=== PATIENT | female | born 2000 | race African-American/Black ===

== ENCOUNTER 2022-08-11 04:35 | Inpatient (IN) | payer BC ==
[2022-08-11] VITALS (19 sets, daily range): BP systolic 102–146; BP diastolic 55–96; PULSE 66–109; TEMP 97.4–98.1
[~2022-08-11] VITALS: Ht 172.7 cm; Wt 112.7 kg
--- NOTE | 2022-08-11 04:35 | NUR ---
PT TO UNIT VIA WHEELCHAIR WITH COMPLIANTS OF CTX THAT BEGAN AT APPROXIMATELY 0230 THIS MORNING. PT ORIENTED TO ROOM, CHANGED INTO GOWN. DENIES LOF BUT STATES SOME BLEEDING. NO ACTIVE BLEEDING VISUALIZED AT THE PERINEUM, SVE OF 7/100/-2 WITH BULGING BAG. PT UNCOMFORTABLE AND BREATHING HEAVILY WITH CTX. WILL NOTIFY PHYSICIAN.
--- NOTE | 2022-08-11 05:17 | NUR ---
Pt assisted to edge of the bed for epidural placement. Rafaela FOSTER at bedside to explain procedure. Difficulty tracing FHR due to maternal position. RN at bedside adjusting monitor. Pulse ox applied. [id number]: Difficulty tracing contractions due to maternal pain and movement. 0524: single shot administered by Rafaela FOSTER. See anesthesia records. 0540: Pt feeling pressure and need to push. SVE C/0. Jerry placed with very small amount of urine return. 0550: Pt begins pushing with this RN and spouse at bedside. 0554: Spontaneous rupture of membrane during contraction and pushing. Clear fluid noted. Pericare provided.
[2022-08-11 05:21] LABS: BASO % 0.2 % (0.0-2.0); EOS # 0.1 K/mm3 (0.0-0.7); EOS % 0.5 % (0.0-4.0); GRAN # 6.8 K/mm3 (1.4-6.5); GRAN % 71.2 % (42.2-75.2); HEMATOCRIT 37.5 % (37.0-47.0); HEMOGLOBIN 12.4 g/dl (12.5-16.0); LYMPH # 2.1 K/mm3 (1.2-3.4); LYMPH % 21.9 % (20.0-51.0); MEAN CELL VOLUME 85 fl (80.0-100.0); MEAN CORPUSCULAR HEMOGLOBIN 28 pg (27-31); MEAN CORPUSCULAR HGB CONC 33 g/dl (33.0-37.0); MEAN PLATELET VOLUME 12.1 fl (7.4-10.4); MONO # 0.6 K/mm3 (0.1-0.6); MONO % 5.8 % (1.7-9.3); PLATELET COUNT 205 K/mm3 (130-400); RED BLOOD COUNT 4.41 M/mm3 (4.10-5.30); REDCELL DISTRIBUTION WIDTH-CV 13.6 % (11.5-14.5)
[2022-08-11] MEDS ORDERED: CLEOCIN HCL300 MG PO (05:44)
[2022-08-11] MEDS ORDERED: TERAZOL0.4% VG (05:45)
[2022-08-11] MEDS ORDERED: PRENATAL TABLET PO (05:46)
--- NOTE | 2022-08-11 06:15 | NUR ---
0615 - BEDSIDE REPORT WITH Gaudencio YCR RN. PATIENT PUSHING WITH CONTRACTIONS. THIS RN ASSUMING CARE. CARE ONGOING.
--- NOTE | 2022-08-11 06:30 | NUR ---
0630 - PATIENT CONTINUES PUSHING WITH CONTRACTIONS. FAIR MATERNAL EFFORT. 0645 - PATIENT CONTINUES PUSHING WITH CONTRACTIONS. 0700 - MD RODRICK AT BEDSIDE. PATIENT CONTINUES PUSHING WITH CONTRACTIONS. VORB PITOCIN AUGMENTATION NEEDED PER MD. 0710 - PITOCIN GTT INITIATED. PATIENT CONTINUES PUSHING WITH CONTRACTIONS. 0730 - PATIENT CONTINUES PUSHING WITH CONTRACTIONS. GOOD MATERNAL EFFORT. 0740 - MD ROGERIO CALLED AND REQUESTED TO BEDSIDE FOR DELIVERY. 0752 - MD ROGERIO AT BEDSIDE. PATIENT PREPPED FOR DELIVERY. NURSERY RN AND EDGE BRUSHER AT BEDSIDE. PATIENT CONTINUES PUSHING WITH CONTRACTIONS. 0758 - PATIENT PUSHING WITH CONTRACTIONS. SPONTANEOUS VAGINAL DELIVERY OF MALE INFANT. HEAD FOLLOWED BY BODY. DRIED AND STIMULATED BY THIS RN AND NURSERY RN. PLACED SKIN TO SKIN WITH PATIENT. Will AGEERN ASSUMES CARE OF FOR NURSERY. 0802 - SPONTANEOUS DELIVERY OF INTACT PLACENTA. 0805 - STRAIGHT CATH PERFORMED BY . 100ML OF UOP NOTED. 0806 - REPAIR OF SUPERFICIAL PERINEUM TEAR AND PERIURETHRAL TEAR PERFORMED BY . FUNDAL MASSGE PERFORMED BY RN. DIMITRIS CARE PERFORMED. BED PAD CHANGED AND ICE PACK PAD APPLIED TO PERINEUM. PATIENT REPOSITIONED. CARE ONGOING.
--- NOTE | 2022-08-11 10:30 | NUR ---
1030 - PATIENT UP TO BATHROOM WITH STANDBY ASSIST. PERICARE PERFORMED BY THIS RN. PATIENT VOIDS. NEW GOWN ON. CLEAN PAD AND MESH UNDERWEAR ON. PATIENT AMBULATES TO ROOM 218 ACCOMPANIED BY SPOUSE, BABY AND THIS RN. PATIENT ORIENTED TO ROOM. CARE ONGOING.
[2022-08-11] MEDS ORDERED: MOTRIN 800800 MG/TAB PO (16:29)
[2022-08-12 02:11] VITALS: BP 118/64; PULSE 78; TEMP 97.8
[2022-08-12 05:41] VITALS: BP 120/68; PULSE 78; TEMP 98
[2022-08-12 07:39] VITALS: BP 118/74; PULSE 67; TEMP 98.5
--- NOTE | 2022-08-12 10:31 | NUR ---
Initial visit attempt; Family resting, [employer] left card offering Spiritual Care and Congratulations for the of their son.
--- NOTE | 2022-08-12 12:00 | NUR ---
1145 - DISCHARGE INSTRUCTIONS FOR MOM AND BABY REVIEWED WITH PATIENT AND SPOUSE. QUESTIONS ANSWERED. 1200 - PATIENT AMBULATORY OFF UNIT ACCOMPANIED BY SPOUSE, BABY AND THIS RN.
== END 2022-08-12 12:00 | disposition home or self-care (01) | DRG 807 ==
LOC: LDRO 04:35 → LDR 05:00 → OB 10:30
PROVIDERS: Student in an Organized Health Care Education/Training Program; ADMIT Obstetrics & Gynecology
PROC: 10E0XZZ Delivery of Products of Conception, External Approach (ICD-10-PCS; principal; 2022-08-11)
PROC: 0HQ9XZZ Repair Perineum Skin, External Approach (ICD-10-PCS; 2022-08-11)
PROC: 0UQMXZZ Repair Vulva, External Approach (ICD-10-PCS; 2022-08-11)
DX: O48.0 Post-term pregnancy (principal); Z37.0 Single live birth; O99.214 Obesity complicating childbirth; Z3A.41 41 weeks gestation of pregnancy; O99.344 Other mental disorders complicating childbirth; F32.A Depression, unspecified; O71.82 Other specified trauma to perineum and vulva; O70.0 First degree perineal laceration during delivery; O76 Abnormality in fetal heart rate and rhythm complicating labor and delivery; Z86.718 Personal history of other venous thrombosis and embolism; Z23 Encounter for immunization
CPT/HCPCS: J2590; J2795; J7120